=== PATIENT | female | born 1990 | race Caucasian/White ===

== ENCOUNTER 2020-10-09 12:21 | Emergency (ER) | payer BC ==
[2020-10-09 13:56] LABS: Bilirubin Neg (Negative); Blood, Urine 150 (Negative); Clarity Cloudy (Clear); Glucose, Urine (Dipstick) Normal (Negative); Ketone, Urine Negative (Negative); Leukocyte 500 (Negative); Nitrite Negative (Negative); Protein, Urine (Dipstick) 30 mg/dl (Neg-Trace)
[2020-10-09 14:04] LABS: RBC/HPF 0-3 HPF (0-3)
[2020-10-09 14:06] LABS: Bacteria/HPF 2+ HPF (None Seen)
[2020-10-09 14:09] LABS: Mucous/LPF Rare LPF (<2+)
[2020-10-09 14:53] LABS: #Eosinphils 0.1 10x3/uL (0.0-0.5); #Monocytes 0.6 10x3/uL (0.0-1.1); #Neutrophils 5.3 10x3/uL (1.5-8.4); %Basophils 0.3 % (0.0-2.0); %Eosinophils 1.7 % (0.0-6.0); %Lymphocytes 21.1 % (18.0-47.0); %Monocytes 7.8 % (0.0-10.0); %Neutrophils 68.7 % (40.0-75.0); Hemoglobin 12.1 g/dL (12.0-15.5); Mean Corpuscular HGB CONC 33.8 g/dL (32.0-36.0); Mean Corpuscular Hemoglobin 28.8 pg (27.0-33.0); Mean Corpuscular Volume 85.2 fl (81.6-98.3); Platelet Count 196 10x3/uL (150-450); White Blood Cell (WBC) Count 7.7 10x3/uL (3.5-10.5)
[2020-10-09 14:56] LABS: PTT 23.1 sec (22.0-33.0); Prothrombin Time 10.6 sec (9.5-12.1)
[2020-10-09 15:16] LABS: ALT (SGPT) 32 U/L (8-55); AST (SGOT) 22 U/L (5-34); Albumin 3.8 g/dL (3.5-5.0); Alkaline Phosphatase 58 U/L (40-110); Anion Gap 12 mmol/L (10-20); BUN (Urea Nitrogen) 7 mg/dL (7.0-18.7); Bilirubin, Total 0.3 mg/dL (0.2-1.2); Calc. Creatinine Clearance 0 mL/min (70-130); Calcium 9.8 mg/dL (7.8-10.44); Carbon Dioxide 20 mmol/L (22-29); Chloride 109 mmol/L (98-107); Globulin 3.3 g/dL (2.4-3.5); Glucose 98 mg/dL (70-105); Potassium 4.2 mmol/L (3.5-5.1); Protein, Total 7.1 g/dL (6.0-8.3); Sodium 137 mmol/L (136-145)
== END 2020-10-09 16:13 | disposition home or self-care (01) ==
LOC: CSHERS 12:21
DX: O20.9 Hemorrhage in early pregnancy, unspecified (principal); O99.891 Other specified diseases and conditions complicating pregnancy; N89.8 Other specified noninflammatory disorders of vagina; O24.112 Pre-existing type 2 diabetes mellitus, in pregnancy, second trimester; E11.9 Type 2 diabetes mellitus without complications; Z3A.15 15 weeks gestation of pregnancy
CPT/HCPCS: 76815; 80053; 81003; 81015; 84702; 85025; 85610; 85730; 86900; 86901; 87086

== ENCOUNTER 2021-01-25 18:59 | Day surgery (SDC) | payer BC ==
[2021-01-25 19:51] VITALS: BMI 40.4
[2021-01-25] MEDS ORDERED: hydrALAZINE 20 MG/ML VIAL SLOW IVP PRN (20:47)
== END 2021-01-25 20:52 | disposition home or self-care (01) ==
LOC: CSHLD/OP 18:59
PROVIDERS: ATTEND Student in an Organized Health Care Education/Training Program
DX: O99.891 Other specified diseases and conditions complicating pregnancy (principal); N89.8 Other specified noninflammatory disorders of vagina; O24.415 Gestational diabetes mellitus in pregnancy, controlled by oral hypoglycemic drugs; Z3A.30 30 weeks gestation of pregnancy
CPT/HCPCS: 99282

== ENCOUNTER 2021-02-27 09:57 | Day surgery (SDC) | payer BC ==
[2021-02-27 10:23] VITALS: BMI 45.1
[2021-02-27] MEDS ORDERED: hydrALAZINE 20 MG/ML VIAL SLOW IVP PRN (11:23)
== END 2021-02-27 11:29 | disposition home or self-care (01) ==
LOC: CSHLD/OP 09:57
PROVIDERS: ATTEND Student in an Organized Health Care Education/Training Program
DX: O36.8330 Maternal care for abnormalities of the fetal heart rate or rhythm, third trimester, not applicable or unspecified (principal); O24.113 Pre-existing type 2 diabetes mellitus, in pregnancy, third trimester; Z79.84 Long term (current) use of oral hypoglycemic drugs; Z3A.35 35 weeks gestation of pregnancy
CPT/HCPCS: 36416

== ENCOUNTER 2021-03-15 08:15 | Outpatient (CLI) | payer BC ==
[2021-03-15 20:26] LABS: SARS-CoV-2 PCR by NAA DETECTED (NotDetected)
== END 2021-03-15 08:16 | disposition home or self-care (01) ==
LOC: CSHLAB 08:15
PROVIDERS: ATTEND Student in an Organized Health Care Education/Training Program
DX: U07.1 COVID-19 (principal)
CPT/HCPCS: U0003; U0005

== ENCOUNTER 2021-03-19 05:30 | Inpatient (IN) | payer BC ==
[2021-03-22] MEDS ORDERED: hydrALAZINE 20 MG/ML VIAL SLOW IVP PRN ×2 (05:56→16:12)
[2021-03-22] MEDS ORDERED: Promethazine HCl 25 MG/ML VIAL IM PRN ×2 (05:56→10:39)
[2021-03-22] MEDS ORDERED: Carboprost 250 MCG/ML AMP IM PRN (05:56)
[2021-03-22] MEDS ORDERED: Misoprostol 200 MCG TAB PR PRN (05:56)
[2021-03-22] MEDS ORDERED: HYDROcodone/Acetaminophen 5/325 mg Tablet PO PRN ×3 (05:56→16:12)
[2021-03-22] MEDS ORDERED: Butorphanol Tartrate 1 MG/ML VIAL SLOW IVP PRN (05:56)
[2021-03-22] MEDS ORDERED: Ibuprofen 800 MG TAB PO PRN (05:56)
[2021-03-22] MEDS ORDERED: Ondansetron PF 4 MG/2 ML Vial IVP PRN ×3 (05:56→16:12)
[2021-03-22] MEDS ORDERED: Zolpidem Tartrate 5 MG TAB PO PRN ×2 (05:56→16:12)
[2021-03-22] MEDS ORDERED: Acetaminophen 500 MG TAB PO PRN (05:56)
[2021-03-22] MEDS ORDERED: Diphenoxylate HCl/Atropine Tablet PO PRN (05:56)
[2021-03-22] MEDS ORDERED: Lidocaine 1% (PF) 30 ML VIAL SC PRN (05:56)
[2021-03-22] MEDS ORDERED: Methylergonovine 0.2 MG/ML VIAL IM PRN (05:56)
[2021-03-22] MEDS ORDERED: Bupivacaine 0.25% HCL 30 ML VIAL ONE (06:00)
[2021-03-22] MEDS ORDERED: NS w/ Oxytocin 30 units 500 ML IV SCH ×2 (06:00)
[2021-03-22] MEDS: Lactated Ringer's 1,000 ML IV SCH (06:15)
[2021-03-22 06:26] VITALS: BMI 41.0
[2021-03-22] MEDS ORDERED: NS w/ Oxytocin 30 units 500 ML ONE (06:51)
[2021-03-22 07:11] LABS: Mean Corpuscular HGB CONC 32.8 g/dL (32.0-36.0); Mean Corpuscular Hemoglobin 26.5 pg (27.0-33.0); Mean Corpuscular Volume 80.7 fl (81.6-98.3); Mean Platelet Volume 12.4 fl (7.4-10.4); Platelet Count 175 10x3/uL (150-450); RBC Distribution Width 15.2 % (11.5-14.5); Red Blood Cell (RBC) Count 4.15 10x6/uL (3.90-5.03); White Blood Cell (WBC) Count 5.4 10x3/uL (3.5-10.5)
[2021-03-22 07:42] LABS: ALT (SGPT) 12 U/L (8-55); AST (SGOT) 13 U/L (5-34); Albumin 3.2 g/dL (3.5-5.0); Alkaline Phosphatase 132 U/L (40-110); Anion Gap 14 mmol/L (10-20); BUN (Urea Nitrogen) 9 mg/dL (7.0-18.7); Bilirubin, Total 0.2 mg/dL (0.2-1.2); Calc. Creatinine Clearance 257 mL/min (70-130); Calcium 8.5 mg/dL (7.8-10.44); Carbon Dioxide 19 mmol/L (22-29); Chloride 108 mmol/L (98-107); Globulin 2.9 g/dL (2.4-3.5); Glucose 92 mg/dL (70-105); Potassium 3.9 mmol/L (3.5-5.1); Protein, Total 6.1 g/dL (6.0-8.3); Sodium 137 mmol/L (136-145)
[2021-03-22 07:47] LABS: Hep B Surf Ag Non-Reactive S/CO (NonReactive)
[2021-03-22 07:48] LABS: Syphilis Antibody Nonreactive (Nonreactive); Syphilis Antibody Index 0.02 S/CO (<1.00 Non-Reactive)
[2021-03-22 08:09] LABS: HBSAg Index 0.16 S/CO (0-0.99)
[2021-03-22] MEDS ORDERED: Fentanyl 2 mcg/Bup 0.1% Cadd 100 ML ONE (08:38)
[2021-03-22] MEDS ORDERED: ePHEDrine Sulfate 50 MG/10 ML VIAL SLOW IVP PRN (10:39)
[2021-03-22] MEDS ORDERED: Lactated Ringer's 500 ML IV PRN (10:39)
[2021-03-22] MEDS ORDERED: diphenhydrAMINE 50 MG/ML VIAL IVP PRN (10:39)
[2021-03-22] MEDS ORDERED: Naloxone HCl 0.4 mg/ml Vial IVP PRN ×2 (10:39)
[2021-03-22] MEDS ORDERED: Acetaminophen 325 MG TAB PO PRN (10:39)
[2021-03-22] MEDS ORDERED: Hydrocerin (Eucerin) Cream 120 gm Jar TOP PRN (10:39)
[2021-03-22] MEDS ORDERED: Fentanyl 2 mcg/Bupivacaine 0.1% Cassette 100 ML EPIDURAL SCH (10:45)
[2021-03-22] MEDS ORDERED: Communication Order-Pharmacy FS SCH (10:45)
[2021-03-22] MEDS ORDERED: Milk Of Magnesia 30 ML UDCUP PO PRN (16:12)
[2021-03-22] MEDS ORDERED: diphenhydrAMINE 25 MG CAP PO PRN (16:12)
[2021-03-22] MEDS ORDERED: Bisacodyl 10 MG SUPP PR PRN (16:12)
[2021-03-22] MEDS ORDERED: Benzocaine-Menthol 82.5 ML CAN TOP PRN (16:12)
[2021-03-22] MEDS ORDERED: Preparation H Ointment 28 GM TUBE PR PRN (16:12)
[2021-03-22] MEDS ORDERED: Boostrix 0.5 ML (Tdap) VIAL IM ONE (16:12)
[2021-03-22] MEDS ORDERED: Lanolin Ointment 7 GM TUBE TOP PRN (16:12)
[2021-03-22] MEDS ORDERED: metFORMIN 500 MG TAB PO SCH (17:00)
[2021-03-22] MEDS: Ferrous Sulfate 325 MG TAB PO SCH (18:17)
[2021-03-22] MEDS ORDERED: Ibuprofen 800 MG TAB ONE (19:35)
[2021-03-22] MEDS: metFORMIN 500 MG TAB PO SCH (19:36)
[2021-03-22] MEDS: Docusate 100 MG CAP PO SCH (19:36)
[2021-03-22] MEDS: Ibuprofen 800 MG TAB PO SCH (19:36)
[2021-03-23] MEDS: Ibuprofen 800 MG TAB PO SCH ×2 (04:09→14:10)
[2021-03-23] MEDS: Lactated Ringer's 1,000 ML IV SCH (07:11)
[2021-03-23] MEDS: Ferrous Sulfate 325 MG TAB PO SCH ×2 (07:12→14:58)
[2021-03-23] MEDS: metFORMIN 500 MG TAB PO SCH (07:55)
[2021-03-23] MEDS: Docusate 100 MG CAP PO SCH (07:55)
[2021-03-23 08:06] VITALS: TEMP 98.4
[2021-03-23] MEDS ORDERED: Prenatal Vitamin 1 TAB PO SCH (09:00)
[2021-03-23 11:46] VITALS: BP 125/62
== END 2021-03-23 16:10 | disposition home or self-care (01) | DRG 807 ==
LOC: CSHLD 03-22 05:34 → CSHANTE 03-22 16:55
PROVIDERS: ADMIT Student in an Organized Health Care Education/Training Program; ATTEND Student in an Organized Health Care Education/Training Program
PROC: 10E0XZZ Delivery of Products of Conception, External Approach (ICD-10-PCS; principal; 2021-03-22)
PROC: 0HQ9XZZ Repair Perineum Skin, External Approach (ICD-10-PCS; 2021-03-22)
PROC: 10907ZC Drainage of Amniotic Fluid, Therapeutic from Products of Conception, Via Natural or Artificial Opening (ICD-10-PCS; 2021-03-22)
PROC: 3E033VJ Introduction of Other Hormone into Peripheral Vein, Percutaneous Approach (ICD-10-PCS; 2021-03-22)
DX: O24.12 Pre-existing type 2 diabetes mellitus, in childbirth (principal); Z37.0 Single live birth; Z3A.36 36 weeks gestation of pregnancy; E11.9 Type 2 diabetes mellitus without complications; O70.0 First degree perineal laceration during delivery; Z20.822 Contact with and (suspected) exposure to COVID-19
CPT/HCPCS: 36415; 36416; 51702; 80053; 85027; 86780; 86850; 86900; 86901; 87340; J2590; J7120; S0020

== ENCOUNTER 2023-02-13 08:18 | Outpatient (CLI) | payer BC | END 2023-02-13 08:19 | disposition home or self-care (01) | LOC: CSHULT 08:18 | PROVIDERS: ATTEND Internal Medicine | DX: R10.9 Unspecified abdominal pain (principal); K76.0 Fatty (change of) liver, not elsewhere classified | CPT/HCPCS: 76700; 76856 ==